=== PATIENT | male | born 1960 | race Caucasian/White ===

== ENCOUNTER → 2018-10-26 10:43 | Outpatient (CLI) | payer BC, SELFPAY ==
--- NOTE | 2018-10-26 12:11 | NEURO ---
NCS and/or EMG Patient Report Ordering Doctor: Papa England DATE OF SERVICE: 10/26/18 Marquez Galaviz is a 58-year-old male presents for electrodiagnostic testing of the left upper limb. He reports a 3-week history of numbness and tingling in the third fourth and fifth digits of left hand as well as the left medial forearm. Electrodiagnostic findings: The left median motor nerve demonstrates normal distal latency, amplitude and conduction velocity. Left ulnar motor response is within normal limits, including conduction across the elbow. Normal left median and ulnar F-wave. Prolonged left median sensory latency. Prolonged left median palmar latency. Normal left ulnar and radial sensory responses. Needle EMG testing showed no evidence of denervation in any muscles tested. Motor unit action potentials were of normal amplitude and duration. Electrodiagnostic impression: This is an abnormal study. 1. Electrodiagnostic findings demonstrate left-sided median mononeuropathy, mild in nature. However, the patient does not have clinical signs of carpal tunnel syndrome. If symptoms persist, would consider repeat testing in 8-12 weeks. Oftentimes, electrodiagnostic abnormality may not be evident in the first 3 weeks following symptoms. Would consider reevaluation for possible ulnar nerve entrapment. 2. No electrodiagnostic evidence for cervical radiculopathy. If there are any further questions, please do not hesitate to contact me
== END ==
PROVIDERS: Referring Provider Physician Assistant Surgical; Visit Provider Physician Assistant Surgical
DX: R20.2 Paresthesia of skin (principal); M25.522 Pain in left elbow
CPT/HCPCS: 95886; 95910